=== PATIENT | female | born 1990 | race Asian ===

== ENCOUNTER 2025-03-18 11:40 | Emergency (ER) | payer MEDICAID, OTHER ==
[~2025-03-18] VITALS: Ht 152.4 cm; Wt 60.0 kg
[2025-03-18 11:47] VITALS: O2SAT 100
[2025-03-18 12:14] LABS: BASOPHILS % 0.2 % (0.0-2.0); EOSINOPHILS % 3.8 % (0.0-5.0); HEMATOCRIT. 39.7 % (36.0-48.0); HEMOGLOBIN. 13.6 g/dL (12.0-16.0); LYMPHOCYTES % 24.9 % (20.0-50.0); MEAN PLATELET VOLUME 7.8 fl (7.4-10.4); MONOCYTES % 4.6 % (2.0-8.0); NEUTROPHILS % 66.5 % (40.0-76.0); PLATELET 278 x1000/uL (130-400); RED BLOOD CELL COUNT 4.95 mill/uL (4.2-5.4); RED CELL DISTRIBUTION WIDTH 14.3 % (11.6-14.6)
[2025-03-18 12:31] LABS: CREATININE 0.5 mg/dL (0.6-1.0); UREA NITROGEN BLOOD 5 mg/dL (9-23)
[2025-03-18 12:57] LABS: B-HCG QUANTITATIVE 26711 mIU/mL (<6)
[2025-03-18 14:59] LABS: CLARITY URINE CLEAR (CLEAR); COLOR URINE YELLOW (YELLOW); GLUCOSE URINE NEGATIVE (NEGATIVE); KETONES URINE NEGATIVE (NEGATIVE); LEUKOCYTE ESTERASE URINE NEGATIVE (NEGATIVE); NITRITE URINE NEGATIVE (NEGATIVE); OCCULT BLOOD URINE NEGATIVE (NEGATIVE); PH URINE 5.5 (4.5-8.0); PROTEIN URINE NEGATIVE (NEGATIVE); SPECIFIC GRAVITY URINE 1.007 (1.005-1.030); UROBILINOGEN URINE 0.2 E.U./dL (0.2-1.0)
[2025-03-18] MEDS ORDERED: PREN1COM12 MT (15:01)
[2025-03-18] MEDS ORDERED: ACET-2708 MT (15:02)
[2025-03-18 15:59] VITALS: BP 126/74; PULSE 86; RESP 18; TEMP 36.7; O2SAT 100
== END 2025-03-18 16:26 | disposition home or self-care (01) ==
LOC: ER 11:40
DX: O26.891 Other specified pregnancy related conditions, first trimester (principal); R10.2 Pelvic and perineal pain; Z3A.08 8 weeks gestation of pregnancy
CPT/HCPCS: 36415; 76801; 80048; 81003; 84702; 85025; 86850; 86900; 99284

== ENCOUNTER 2025-04-15 09:09 | Emergency (ER) | payer MEDICAID, OTHER ==
[~2025-04-15] VITALS: Ht 165.1 cm; Wt 70.0 kg
[~2025-04-15 09:09] MED LIST: ACET-2708 MT; PREN1COM12 MT
[2025-04-15 09:18] VITALS: O2SAT 100
[2025-04-15 10:07] LABS: BASOPHILS % 0.3 % (0.0-2.0); EOSINOPHILS % 3.0 % (0.0-5.0); HEMATOCRIT. 37.1 % (36.0-48.0); HEMOGLOBIN. 12.7 g/dL (12.0-16.0); LYMPHOCYTES % 23.4 % (20.0-50.0); MEAN PLATELET VOLUME 7.6 fl (7.4-10.4); MONOCYTES % 4.3 % (2.0-8.0); NEUTROPHILS % 69.0 % (40.0-76.0); PLATELET 262 x1000/uL (130-400); RED BLOOD CELL COUNT 4.39 mill/uL (4.2-5.4); RED CELL DISTRIBUTION WIDTH 18.0 % (11.6-14.6)
[2025-04-15 10:24] LABS: CREATININE 0.5 mg/dL (0.6-1.0)
[2025-04-15 10:25] LABS: UREA NITROGEN BLOOD 6 mg/dL (9-23)
[2025-04-15 10:26] LABS: CLARITY URINE CLEAR (CLEAR); COLOR URINE YELLOW (YELLOW); GLUCOSE URINE NEGATIVE (NEGATIVE); KETONES URINE NEGATIVE (NEGATIVE); LEUKOCYTE ESTERASE URINE NEGATIVE (NEGATIVE); NITRITE URINE NEGATIVE (NEGATIVE); OCCULT BLOOD URINE NEGATIVE (NEGATIVE); PH URINE 6.0 (4.5-8.0); PROTEIN URINE NEGATIVE (NEGATIVE); SPECIFIC GRAVITY URINE 1.005 (1.005-1.030); UROBILINOGEN URINE 0.2 E.U./dL (0.2-1.0)
[2025-04-15 10:27] LABS: ASPARTATE AMINOTRANSFERASE 15 IU/L (<34); BILIRUBIN DIRECT 0.6 mg/dL (<=3.0); BILIRUBIN TOTAL 1.9 mg/dL (0.1-1.0); PROTEIN TOTAL 6.9 g/dL (6.0-8.3)
[2025-04-15 10:40] LABS: B-HCG QUANTITATIVE 63546 mIU/mL (<6)
[2025-04-15 12:04] VITALS: BP 119/70; PULSE 90; RESP 18; TEMP 37.1; O2SAT 100
== END 2025-04-15 12:53 | disposition home or self-care (01) ==
LOC: ER 09:27
DX: O03.9 Complete or unspecified spontaneous abortion without complication (principal); R10.20 Pelvic and perineal pain unspecified side; Z3A.11 11 weeks gestation of pregnancy; Z79.899 Other long term (current) drug therapy
CPT/HCPCS: 36415; 76801; 80048; 80076; 81003; 81025; 84702; 85025; 99284

== ENCOUNTER 2025-06-14 09:05 | Emergency (ER) | payer MEDICAID, OTHER ==
[~2025-06-14] VITALS: Ht 165.1 cm; Wt 66.0 kg
[2025-06-14 09:19] VITALS: O2SAT 99
[2025-06-14] MEDS: ACETAMINOPHEN 500MG TABLET PO ONE (11:50)
[2025-06-14 13:34] LABS: INFLUENZA TYPE A Presumptive Negative (Pres. Neg.)
[2025-06-14 13:35] LABS: INFLUENZA TYPE B Presumptive Negative (Pres. Neg.); RESPIRATORY SYNCYTIAL VIRUS Not Detected (Not Detectd)
[2025-06-14] MEDS ORDERED: FLUT9.9S BOTHNSTRLS (13:36)
[2025-06-14] MEDS ORDERED: TOPUD MT (13:37)
[2025-06-14] MEDS ORDERED: BENZ100C86 MT (13:37)
[2025-06-14 13:57] VITALS: BP 101/65; PULSE 97; RESP 16; TEMP 37.2; O2SAT 99
== END 2025-06-14 13:59 | disposition home or self-care (01) ==
LOC: ER 09:05
DX: B34.9 Viral infection, unspecified (principal); R51.9 Headache, unspecified; R05.9 Cough, unspecified; R09.81 Nasal congestion; Z60.3 Acculturation difficulty; Z20.822 Contact with and (suspected) exposure to COVID-19
CPT/HCPCS: 71045; 81025; 87420; 87426; 87430; 87804; 99284